=== PATIENT | female | born 1965 | race Caucasian/White ===

== ENCOUNTER 2017-10-23 21:20 | Emergency (ER) | payer OTHER ==
--- NOTE | 2017-10-23 21:24 | ER Report ---
History and Physical Time Seen By MD: 21:23 HPI/ROS CHIEF COMPLAINT: Severe headache HISTORY OF PRESENT ILLNESS: Patient is a 52-year-old female here with complaints of severe headache the past several hours in the setting of a history of migraines. Patient reports that her current pain distribution is similar to her regular migraines however that this one is more severe. Patient reports taking Excedrin without relief of symptoms. Patient denies focal neurological deficits, fevers, chills, chest pain, shortness breath. Patient is nauseated and does have photosensitivity to light. REVIEW OF SYSTEMS: Constitutional: No fever, no chills. Eyes: No discharge. ENT: No sore throat. Cardiovascular: No chest pain, no palpitations. Respiratory: No cough, no shortness of breath. Gastrointestinal: No abdominal pain, no vomiting. Genitourinary: No hematuria. Musculoskeletal: No back pain. Skin: No rashes. Neurological: + severe headache. Allergies: Coded Allergies: codeine (Verified Allergy, Unknown, 10/23/17) Home Meds Active Scripts Tramadol Hcl (TRAMADOL HCL) 50 Mg Tablet, 50 MG PO Q6H Y for PAIN, #12 TAB 0 Refills Prov:MIO ZACARIAS DO 10/23/17 Ondansetron (ZOFRAN ODT) 4 Mg Tab.rapdis, 4 MG PO Q6H Y for NAUSEA/VOMITING, # 20 TAB.LORENE 0 Refills Prov:MIO ZACARIAS DO 10/23/17 Constitutional Vital Sign - Last 24 Hours 10/23/17 10/23/17 10/23/17 10/23/17 21:28 21:30 21:47 21:50 Temp 94.4 Pulse 89 83 Resp 16 16 B/P (MAP) 135/73 137/126 (130) 99/73 (82) Pulse Ox 100 97 O2 Delivery Room Air 10/23/17 10/23/17 10/23/17 10/23/17 21:56 22:00 22:05 22:20 Pulse 90 ??? Resp 23 30 B/P (MAP) 110/64 (79) 103/64 (77) Pulse Ox 99 10/23/17 10/23/17 10/23/17 10/23/17 22:30 22:35 22:50 22:55 Pulse 84 84 81 Resp 19 18 19 B/P (MAP) 104/65 (78) Pulse Ox 93 94 94 10/23/17 10/23/17 10/23/17 10/23/17 23:00 23:10 23:25 23:30 Pulse 77 76 77 Resp 14 13 B/P (MAP) 101/63 (76) 102/68 (79) Pulse Ox 94 98 96 10/23/17 23:45 Pulse 74 Resp 12 Pulse Ox 95 Physical Exam General Appearance: The patient is alert, has no immediate need for airway protection and no signs of toxicity. + moderate distress due to severe pain Eyes: Pupils equal and round no pallor or injection, + photosensitivity ENT, Mouth: Mucous membranes are moist. Respiratory: There are no retractions, lungs are clear to auscultation. Cardiovascular: Regular rate and rhythm. Gastrointestinal: Abdomen is soft and non tender, no masses, bowel sounds normal. Neurological: No focal neurological deficits Skin: Warm and dry, no rashes. Musculoskeletal: Neck is supple non tender. Extremities are nontender, nonswollen and have full range of motion. DIFFERENTIAL DIAGNOSIS: After history and physical exam differential diagnosis was considered for headache including but not limited to subarachnoid hemorrhage , migraine headache, tension headache and infectious causes such as meningitis, pharyngitis and sinusitis. Medical Decision Making Data Points Result Diagram: 10/23/17213010/23/172130 Laboratory Hematology Test 10/23/17 21:31 Red Blood Count 4.65 M/uL (4.17-5.56) Mean Corpuscular Volume 86.7 fL (80.0-96.0) Mean Corpuscular Hemoglobin 29.9 pg (26.0-33.0) Mean Corpuscular Hemoglobin Concent 34.5 g/dL (32.0-36.0) Red Cell Distribution Width 13.1 % (11.5-14.5) Mean Platelet Volume 7.9 fL (7.2-11.1) Neutrophils (%) (Auto) 61.3 % (39.4-72.5) Lymphocytes (%) (Auto) 30.4 % (17.6-49.6) Monocytes (%) (Auto) 6.5 % (4.1-12.4) Eosinophils (%) (Auto) 0.8 % (0.4-6.7) Basophils (%) (Auto) 1.0 % (0.3-1.4) Nucleated RBC Relative Count (auto) 0.2 /100WBC Neutrophils # (Auto) 5.2 K/uL (2.0-7.4) Lymphocytes # (Auto) 2.6 K/uL (1.3-3.6) Monocytes # (Auto) 0.6 K/uL (0.3-1.0) Eosinophils # (Auto) 0.1 K/uL (0.0-0.5) Basophils # (Auto) 0.1 K/uL (0.0-0.1) Nucleated RBC Absolute Count (auto) 0.02 K/uL Erythrocyte Sedimentation Rate 9 mm/HOUR (0-30) Sodium Level 139 mmol/L (137-145) Potassium Level 3.1 mmol/L (3.5-5.0) Chloride Level 99 mmol/L (98-107) Carbon Dioxide Level 23 mmol/L (22-31) Blood Urea Nitrogen 20 mg/dl (7-18) Creatinine 0.80 mg/dl (0.52-1.04) Glomerular Filtration Rate Calc > 60.0 Random Glucose 146 mg/dl (75-110) Calcium Level 9.7 mg/dl (8.4-10.2) Total Bilirubin 0.5 mg/dl (0.2-1.3) Aspartate Amino Transf (AST/SGOT) 41 U/L (0-35) Alanine Aminotransferase (ALT/SGPT) 24 U/L (0-56) Alkaline Phosphatase 133 U/L (0-126) Total Protein 7.6 g/dl (6.3-8.2) Albumin 4.7 g/dl (3.5-5.0) Lipase 64 U/L (23-300) Human Chorionic Gonadotropin, Qual Negative (NEGATIVE) Chemistry Test 10/23/17 21:31 White Blood Count 8.6 k/uL (4.5-11.0) Red Blood Count 4.65 M/uL (4.17-5.56) Hemoglobin 13.9 g/dL (12.0-16.0) Hematocrit 40.3 % (34.0-47.0) Mean Corpuscular Volume 86.7 fL (80.0-96.0) Mean Corpuscular Hemoglobin 29.9 pg (26.0-33.0) Mean Corpuscular Hemoglobin Concent 34.5 g/dL (32.0-36.0) Red Cell Distribution Width 13.1 % (11.5-14.5) Platelet Count 363 K/uL (150-450) Mean Platelet Volume 7.9 fL (7.2-11.1) Neutrophils (%) (Auto) 61.3 % (39.4-72.5) Lymphocytes (%) (Auto) 30.4 % (17.6-49.6) Monocytes (%) (Auto) 6.5 % (4.1-12.4) Eosinophils (%) (Auto) 0.8 % (0.4-6.7) Basophils (%) (Auto) 1.0 % (0.3-1.4) Nucleated RBC Relative Count (auto) 0.2 /100WBC Neutrophils # (Auto) 5.2 K/uL (2.0-7.4) Lymphocytes # (Auto) 2.6 K/uL (1.3-3.6) Monocytes # (Auto) 0.6 K/uL (0.3-1.0) Eosinophils # (Auto) 0.1 K/uL (0.0-0.5) Basophils # (Auto) 0.1 K/uL (0.0-0.1) Nucleated RBC Absolute Count (auto) 0.02 K/uL Erythrocyte Sedimentation Rate 9 mm/HOUR (0-30) Glomerular Filtration Rate Calc > 60.0 Calcium Level 9.7 mg/dl (8.4-10.2) Total Bilirubin 0.5 mg/dl (0.2-1.3) Aspartate Amino Transf (AST/SGOT) 41 U/L (0-35) Alanine Aminotransferase (ALT/SGPT) 24 U/L (0-56) Alkaline Phosphatase 133 U/L (0-126) Total Protein 7.6 g/dl (6.3-8.2) Albumin 4.7 g/dl (3.5-5.0) Lipase 64 U/L (23-300) Human Chorionic Gonadotropin, Qual Negative (NEGATIVE) EKG/Imaging Imaging HEAD CT: Indication: Persistent headache. Technique: Contiguous axial sections were obtained from the base to the vertex without contrast enhancement. One of the following dose optimization techniques was utilized in the performance of this exam: Automated exposure control; adjustment of the mA and/ or kV according to the patient's size; or use of an iterative reconstruction technique. Specific details can be referenced in the facility's radiology CT exam operational policy. Comparison: None. Findings: There is no evidence of intra-axial or extra-axial hemorrhage. No focal areas of decreased or increased attenuation are identified. There is no evidence of mass, edema, or shift of the midline structures. The size, shape, and configuration of the ventricular system are normal. The skeletal structures are intact and unremarkable. The visualized paranasal sinuses and mastoid air cells are clear. Impression: Unremarkable unenhanced head CT. ED Course/Re-evaluation ED Course Patient is a 52-year-old female here with complaints of severe migraine refractory to home interventions. Patient reports similar distribution of pain however that this pain is more severe than her usual migraines. Patient denies trauma, focal deficits. CT imaging was completed due to the patient's severity of pain. He was negative for intracranial pathology. Patient was given the following medications: Decadron, magnesium, Benadryl, Reglan, fluid bolus, potassium repletion, fentanyl bolus, Zofran with significant relief of symptoms. Patient labs were remarkable for hypokalemia which was repleted. Inflammatory markers were unremarkable. Labs were otherwise normal. Patient was discharged on tramadol and Zofran for home use. Decision to Disposition Date: Oct 24, 2017 Decision to Disposition Time: 00:15 Depart Departure Latest Vital Signs Vital Signs Date Time Temp Pulse Resp B/P (MAP) Pulse Ox O2 Delivery O2 Flow Rate FiO2 10/23/17 23:45 74 12 95 10/23/17 23:30 102/68 (79) 10/23/17 21:28 94.4 Room Air Impression: Primary Impression: Migraine Additional Impression: Nausea & vomiting Condition: Improved Disposition: HOME OR SELF-CARE New Scripts Tramadol Hcl (TRAMADOL HCL) 50 Mg Tablet 50 MG PO Q6H Y for PAIN, #12 TAB 0 Refills Prov: MIO ZACARIAS DO 10/23/17 Ondansetron (ZOFRAN ODT) 4 Mg Tab.rapdis 4 MG PO Q6H Y for NAUSEA/VOMITING, #20 TAB.LORENE 0 Refills Prov: MIO ZACARIAS DO 10/23/17 Patient Instructions: Acute Nausea and Vomiting (ED), Migraine Headache (ED), Ondansetron (By mouth, Into the mouth), Tramadol (By mouth) Additional Instructions: Please drink plenty of water. You may take 1 tablet of tramadol every 8 hours as needed for pain. You may take 1 tablet Zofran every 6-8 hours as needed for nausea. Please follow-up with your family doctor in the next week. Please return promptly if you develop worsening symptoms, intractable headaches, inability to tolerate oral intake. Problem Qualifiers MIO ZACARIAS DO Oct 23, 2017 21:24
[2017-10-23] MEDS ORDERED: NS(*) 0.9% 1000 ML BAG 1,000 ML IV ONE (21:31)
[2017-10-23] MEDS ORDERED: DEXAMETHASONE SOD PHOS 10MG/ML IVP ONE (21:35)
[2017-10-23] MEDS ORDERED: MAGNESIUM SUL* 2 GM/50 ML IVPB 50 ML IVPB ONE (21:35)
[2017-10-23] MEDS ORDERED: diphenhydrAMINE 50 MG/ML VIAL IVP ONE (21:35)
[2017-10-23] MEDS ORDERED: METOCLOPRAMIDE 10 MG/2 ML SDV IVP ONE (21:35)
[2017-10-23 21:44] LABS: PLATELET COUNT, AUTOMATED 363 K/uL (150-450)
[2017-10-23] MEDS: POTASSIUM CHL 20 MEQ TABCR PO SCH ×2 (21:55→22:16)
--- NOTE | 2017-10-23 22:09 | RADIOLOGY IMAGING REPORT ---
FACILITY: [facility] PATIENT NAME: Margie Michael : 1965 MR: [id number] V: [id number] EXAM DATE: ORDERING PHYSICIAN: MIO ZACARIAS TECHNOLOGIST: Location: [facility] [place] Patient: Margie Michael : 1965 Visit/Account:[id number] Date of Sevice: 10/23/[address]: Indication: Persistent headache. Technique: Contiguous axial sections were obtained from the base to the vertex without contrast enhan cement. One of the following dose optimization techniques was utilized in the performance of this exam: Autom ated exposure control; adjustment of the mA and/or kV according to the patient's size; or use of an i terative reconstruction technique. Specific details can be referenced in the facility's radiology CT exam operational policy. Comparison: None. Findings: There is no evidence of intra-axial or extra-axial hemorrhage. No focal areas of decreased or increased attenuation are identified. There is no evidence of mass, edema, or shift of the midline structures. The size, shape, and configuration of the ventricular system are normal. The skeletal st ructures are intact and unremarkable. The visualized paranasal sinuses and mastoid air cells are darren r. Impression: Unremarkable unenhanced head CT. Report Dictated By: Matthew Fine MD at 10/23/2017 10:03 PM Report E-Signed By: Matthew Fine MD at 10/23/2017 10:05 PM WSN:[id number]
[2017-10-23] MEDS: KETOROLAC 30 MG/ML VIAL IVP ONE ×2 (22:17→22:22)
[2017-10-23] MEDS ORDERED: fentaNYL CITR 100 MCG/2 ML AMP IVP ONE (23:25)
[2017-10-23 23:30] VITALS: BP 102/68
[2017-10-23] MEDS ORDERED: ONDANSETRON 4 MG/2 ML VIAL IVP ONE (23:30)
[2017-10-23] MEDS ORDERED: ONDA4TAB PO (23:44)
[2017-10-23] MEDS ORDERED: TRAM-420 PO (23:44)
[2017-10-23] MEDS ORDERED: traMADol 50 MG TAB TH 2 TAB/BOTTLE PO ONE (23:55)
[2017-10-23] MEDS ORDERED: ONDANSETRON 4 MG ODT TH SL ONE (23:55)
== END 2017-10-24 00:14 | disposition home or self-care (01) ==
LOC: ER 21:43
DX: G43.909 Migraine, unspecified, not intractable, without status migrainosus (principal); R11.2 Nausea with vomiting, unspecified
CPT/HCPCS: 70450; 83690; 84703; 85025; 85651; 96361; 96365; 96375; 99284; C9399; J1100; J1200; J1885; J2405; J2765; J3475; J7030; S0119; 82040; 82247; 82310; 82374; 82435; 82565; 82947; 84075; 84132; 84155; 84295; 84450; 84460; 84520